=== PATIENT | male | born 1950 | race Caucasian/White ===

== ENCOUNTER 2017-12-28 06:17 | Emergency (ER) | payer MEDICARE, BC ==
[~2017-12-28 06:17] MED LIST: Ondansetron 4 MG Tab.DIS ONE; traMADol 50 MG Tab ONE
[2017-12-28] MEDS ORDERED: traMADol 50 MG Tab PO ONE (06:21)
[2017-12-28] MEDS ORDERED: Sodium Chloride 0.9% 10 ML Syringe FLUSH PRN (06:21)
[2017-12-28] MEDS ORDERED: Ondansetron 4 MG Tab.DIS PO PRN (06:22)
[2017-12-28] MEDS ORDERED: LORazepam 0.5 MG Tab PO ONE (06:23)
--- NOTE | 2017-12-28 08:01 | EDM.PDOC ---
ED HPI GENERAL MEDICAL PROBLEM - General Chief Complaint: Chest Pain Stated Complaint: CHEST PAIN Time Seen by Provider: 12/28/17 06:20 Source of Information: Reports: Patient, Family History Limitations: Reports: No Limitations - History of Present Illness INITIAL COMMENTS - FREE TEXT/NARRATIVE: Patient is a 67 year old man with a history of prostate cancer and kidney cancer status post prostatectomy and nephrectomy on the right. He has been doing a lot of cleaning and lifting of his boat and boat accessories in the past week and has had a little bit of right rib pain when he moves. This morning at 3 am he was awakened with a sharp stabbing pain of 8/10 in his right ribs. The pain is non exertional and not on the left side. It hurts tremendously when he touches the rib and when he tries to take a deep breath. He has no swelling or pain in the legs and no dyspnea. He does not have a cough , fever or chills and he otherwise does not feel sick. Onset: Gradual Onset Date: 12/21/17 Onset Time: 03:00 Duration: Hour(s): (3 hours of sharp, right sided pain.) Location: Reports: Chest Quality: Reports: Stabbing Severity: Severe Improves with: Reports: Immobilization Worsens with: Reports: Movement Context: Reports: Lifting Associated Symptoms: Reports: No Other Symptoms Treatments BELL PERSON: Reports: NSAIDS, Other (see below) Other Treatments BELL PERSON: Ibuprophen - Related Data Allergies Allergy/AdvReac Type Severity Reaction Status Date / Time hydrocodone Allergy Nausea Verified 12/28/17 06:56 oxycodone [From OxyContin] Allergy Nausea Verified 12/28/17 06:55 Home Meds: Home Meds Omeprazole Magnesium [Prilosec Otc] 20 mg PO DAILY 12/28/17 [History] ED ROS GENERAL - Review of Systems Review Of Systems: See Below Constitutional: Reports: No Symptoms HEENT: Reports: No Symptoms Respiratory: Reports: Pleuritic Chest Pain Cardiovascular: Reports: Chest Pain Endocrine: Reports: No Symptoms GI/Abdominal: Reports: No Symptoms : Reports: No Symptoms Musculoskeletal: Reports: Other (Right rib pain.) Skin: Reports: No Symptoms Neurological: Reports: No Symptoms Psychiatric: Reports: No Symptoms Hematologic/Lymphatic: Reports: No Symptoms Immunologic: Reports: No Symptoms ED EXAM, GENERAL - Physical Exam Exam: See Below Exam Limited By: No Limitations General Appearance: Alert, WD/WN, No Apparent Distress Eye Exam: Bilateral Eye: EOMI, Normal Fundi, Normal Inspection Ears: Normal External Exam, Normal Canal, Hearing Grossly Normal, Normal TMs Ear Exam: Bilateral Ear: Auricle Normal, Canal Normal, TM normal Nose: Normal Inspection, Normal Mucosa, No Blood Throat/Mouth: Normal Inspection, Normal Lips, Normal Teeth, Normal Gums, Normal Oropharynx, Normal Voice, No Airway Compromise Head: Atraumatic, Normocephalic Neck: Normal Inspection Respiratory/Chest: No Respiratory Distress, Lungs Clear, Normal Breath Sounds, No Accessory Muscle Use, Other (Can reproduce the pain by palpation the right lower lateral ribs.) Cardiovascular: Normal Peripheral Pulses Peripheral Pulses: 3+: Posterior Tibial (L), Posterior Tibial (R), Dorsalis Pedis (L), Dorsalis Pedis (R) GI/Abdominal: Normal Bowel Sounds, Soft, Non-Tender, No Organomegaly, No Distention, No Abnormal Bruit, No Mass Back Exam: Normal Inspection, Full Range of Motion, NT Extremities: Normal Inspection, Normal Range of Motion, Non-Tender, Normal Capillary Refill, No Pedal Edema Neurological: Alert, Oriented, CN II-XII Intact, Normal Cognition, Normal Gait, Normal Reflexes, No Motor/Sensory Deficits Psychiatric: Normal Affect, Normal Mood Skin Exam: Warm, Dry, Intact, Normal Color, No Rash Lymphatic: No Adenopathy EKG INTERPRETATION EKG Date: 12/28/17 Rhythm: NSR [place]: Normal P-Wave: Present QRS: Normal ST-T: Normal QT: Normal Comparison: NA - No Prior EKG Course - Vital Signs Text/Narrative:: Patient was given 100 mg of Tramadol and 4 mg of Zofran and his pain went away. His Troponin and D-Dimer came back negative. He had an elevated Creatnine, which he says he has had since his Kidney removal. He will be discharged home on Tramadol 50 mg po q 4 hours, #10 dispensed and 5 Zofran, 4 mg po. He will follow up with his PCP in [place] early next week or will go to the ED if the pain reoccurs before he can see his Doctor. Last Recorded V/S: Last Vital Signs Temp 36.5 C 12/28/17 06:46 Pulse 78 12/28/17 07:00 Resp 20 12/28/17 07:00 BP 120/83 12/28/17 07:00 Pulse Ox 93 L 12/28/17 07:00 - Orders/Labs/Meds Orders: Active Orders 24 hr Category Date Time Status EKG Documentation Completion [RC] ASDIRECTED Care 12/28/17 06:20 Active EKG Documentation Completion [RC] STAT Care 12/28/17 06:19 Active CXR [Chest 1V Frontal] [CR] Stat Exams 12/28/17 06:20 Taken Ondansetron [Zofran ODT] Med 12/28/17 06:22 Active 4 mg PO Q4H PRN Sodium Chloride 0.9% [Saline Flush] Med 12/28/17 06:21 Active 10 ml FLUSH ASDIRECTED PRN Saline Lock Insert [OM.PC] Routine Oth 12/28/17 06:21 Ordered Medication Orders Ondansetron HCl (Zofran Odt) 4 mg PO Q4H PRN PRN Reason: Nausea/Vomiting Last Admin: 12/28/17 06:20 Dose: 4 mg Sodium Chloride (Saline Flush) 10 ml FLUSH ASDIRECTED PRN PRN Reason: Keep Vein Open Labs: Laboratory Tests 12/28/17 12/28/17 12/28/17 Range/Units 06:30 06:30 06:30 WBC 6.8 (4.0-11.0) K/uL RBC 5.29 (4.50-6.50) M/uL Hgb 15.7 (13.0-18.0) g/dL Hct 46.1 (40.0-54.0) % MCV 87 (76-96) fL MCH 29.7 (27.0-32.0) pg MCHC 34.1 (31.0-35.0) g/dL RDW 13.6 (11.0-16.0) % Plt Count 139 L (150-400) K/uL MPV 9.4 (6.0-10.0) fL Neut % (Auto) 70.1 H (45.0-70.0) % Lymph % (Auto) 18.9 L (20.0-40.0) % [place] % (Auto) 9.0 (3.0-10.0) % Eos % (Auto) 1.9 (1.0-5.0) % Baso % (Auto) 0.1 (0.0-0.5) % Neut # (Auto) 4.77 (2.00-7.50) K/uL Lymph # (Auto) 1.29 L (1.50-4.00) K/uL [place] # (Auto) 0.61 (0.20-0.80) K/uL Eos # (Auto) 0.13 (0.04-0.40) K/uL Baso # (Auto) 0.01 L (0.02-0.10) K/uL D-Dimer, Quantitative < 100 (0-400) ng/mL Sodium 138 (136-145) mmol/L Potassium 3.8 (3.5-5.1) mmol/L Chloride 106 (98-107) mmol/L Carbon Dioxide 26.5 (21.0-32.0) mmol/L Anion Gap 9.3 (5.0-15.0) mmol/L BUN 22 (8-26) mg/dL Creatinine 1.68 H (0.70-1.30) mg/dL Est Cr Clr Drug Dosing TNP Estimated GFR (MDRD) 41 L (>60) MLS/MIN BUN/Creatinine Ratio 13.1 (6-25) Glucose 129 H (74-100) mg/dL Calcium 8.8 (8.5-10.1) mg/dL Total Bilirubin 0.6 (0.0-1.0) mg/dL AST 25 (15-37) U/L ALT 39 (12-78) U/L Alkaline Phosphatase 73 (46-116) U/L Troponin I < 0.017 (0.000-0.060) ng/mL Total Protein 7.5 (6.4-8.2) g/dL Albumin 3.8 (3.4-5.0) g/dL Globulin 3.7 (2.2-4.2) g/dL Albumin/Globulin Ratio 1.0 (0.8-2.0) Meds: Medications Generic Name Dose Route Start Last Admin Trade Name Freq PRN Reason Stop Dose Admin Ondansetron HCl 4 mg 12/28/17 06:22 12/28/17 06:20 Zofran Odt PO 4 mg Q4H PRN Administration Nausea/Vomiting Sodium Chloride 10 ml 08/11/18 06:21 Saline Flush FLUSH ASDIRECTED PRN Keep Vein Open Discontinued Medications Generic Name Dose Route Start Last Admin Trade Name Kami PRN Reason Stop Dose Admin Lorazepam 0.5 mg 12/28/17 06:23 12/28/17 06:31 Ativan PO 12/28/17 06:24 0.5 mg ONETIME ONE Administration Tramadol HCl 100 mg 12/28/17 06:21 12/28/17 06:20 Ultram PO 12/28/17 06:22 100 mg ONETIME ONE Administration Departure - Departure Time of Disposition: 08:10 Disposition: Home, Self-Care 01 Condition: Good Clinical Impression: Costochondral chest pain Instructions: Costochondritis, [id number], Ondansetron oral dissolving tablet , Tramadol tablets Referrals: PCP,None [Primary Care Provider] - Forms: ED Department Discharge Additional Instructions: Take the tramadol as needed for the pain and the zofran for nausea if you have it. We will call you if there is an issue with the chest xray, Dr. Clark does feel that there is nothing wrong with the xray. If you have any questions or concerns please contact us at [phone]. - My Orders Last 24 Hours: My Active Orders 12/28/17 06:19 EKG Documentation Completion [RC] STAT 12/28/17 06:20 EKG Documentation Completion [RC] ASDIRECTED CXR [Chest 1V Frontal] [CR] Stat 12/28/17 06:21 Sodium Chloride 0.9% [Saline Flush] 10 ml FLUSH ASDIRECTED PRN Saline Lock Insert [OM.PC] Routine 12/28/17 06:22 Ondansetron [Zofran ODT] 4 mg PO Q4H PRN - Assessment/Plan Last 24 Hours: My Active Orders 12/28/17 06:19 EKG Documentation Completion [RC] STAT 12/28/17 06:20 EKG Documentation Completion [RC] ASDIRECTED CXR [Chest 1V Frontal] [CR] Stat 12/28/17 06:21 Sodium Chloride 0.9% [Saline Flush] 10 ml FLUSH ASDIRECTED PRN Saline Lock Insert [OM.PC] Routine 12/28/17 06:22 Ondansetron [Zofran ODT] 4 mg PO Q4H PRN
--- NOTE | 2017-12-28 20:01 | CR ---
CLINICAL DATA: Right sided chest pain. AP PORTABLE CHEST, 28 DECEMBER 2017: No priors. The patient has taken a poor inspiration. The heart size is within normal limits. The aorta is ectatic. The pulmonary vasculature is mildly prominent. It is probably accentuated by the poor inspiration. There atelectatic changes in both lung bases. The lungs are otherwise clear. No pneumothorax. No pleural effusions. Job: [id number] [id number]
== END 2017-12-28 08:00 | disposition home or self-care (01) ==
LOC: LB.ED 06:17
DX: R07.1 Chest pain on breathing (principal); C61 Malignant neoplasm of prostate; C64.9 Malignant neoplasm of unspecified kidney, except renal pelvis; Z90.5 Acquired absence of kidney; Z90.79 Acquired absence of other genital organ(s)
CPT/HCPCS: 36415; 71045; 80053; 84484; 85025; 85379; 93005; 99285-25; A9270-GY